=== PATIENT | female | born 1930 | race Caucasian/White ===

== ENCOUNTER 2018-04-30 10:29 | Inpatient (IN) | payer MEDICAID ==
[~2018-04-30] VITALS: Ht 162.6 cm; Wt 65.3 kg
[~2018-04-30 10:29] MED LIST: ASPI-1159 MT; ATOR10TA69 MT; BENA20TA10 PO; DILT240C3 PO; ESOM20VI PO; FAMO40TA7 MT; FLUO-123 MT; GABA-529 MT; HYDR-4134 PO; METF-415 PO; OMEP40CA34 MT; ROSU10TA25 PO; SIME80TA14 PO; TOPXL5 PO; WARF3TAB58 PO
[2018-04-30] MEDS ORDERED: ONDANSETRON HCL 4MG/2ML INJ IV STA (10:59)
[2018-04-30] MEDS ORDERED: SODIUM CHLORIDE 0.9% 1,000 ML IV ONE (10:59)
[2018-04-30] MEDS ORDERED: MORPHINE SULFATE 4 MG/ML CPJ (NOT FOR IM USE) IV STA (10:59)
[2018-04-30 12:48] LABS: BASOPHILS % 0.6 % (0.0-2.0); EOSINOPHILS % 1.2 % (0.0-5.0); HEMATOCRIT. 29.6 % (36.0-48.0); HEMOGLOBIN. 9.2 g/dL (12.0-16.0); MEAN CORPUSCULAR HEMOGLOBIN 23.5 pg (28.0-32.0); MEAN CORPUSCULAR VOLUME 75.8 fL (81.0-99.0); MEAN PLATELET VOLUME 7.7 fl (7.4-10.4); MONOCYTES % 5.8 % (2.0-8.0); NEUTROPHILS % 76.4 % (40.0-76.0); PLATELET 236 x1000/uL (130-400); RED BLOOD CELL COUNT 3.91 mill/uL (4.2-5.4); RED CELL DISTRIBUTION WIDTH 17.3 % (11.6-14.6)
[2018-04-30] MEDS ORDERED: MORPHINE SULFATE 10 MG/ML CPJ IV NR (12:52)
[2018-04-30 12:58] LABS: CHLORIDE 105 mEq/L (98-107)
[2018-04-30 13:09] LABS: INR > 10.0; PROTHROMBIN TIME 128.1 sec (9.1-11.1)
[2018-04-30 13:16] LABS: PARTIAL THROMBOPLASTIN TIME 82.2 sec (23.4-31.0)
[2018-04-30] MEDS ORDERED: PHYTONADIONE 10 MG/10 ML ORALSYR PO ONE (13:30)
[2018-04-30 14:37] LABS: CLARITY URINE CLEAR (CLEAR); COLOR URINE YELLOW (YELLOW); KETONES URINE NEGATIVE (NEGATIVE); LEUKOCYTE ESTERASE URINE 2+ (NEGATIVE); NITRITE URINE NEGATIVE (NEGATIVE); OCCULT BLOOD URINE TRACE (NEGATIVE); PROTEIN URINE NEGATIVE (NEGATIVE); SPECIFIC GRAVITY URINE 1.013 (1.005-1.030)
[2018-04-30] MEDS ORDERED: CEFTRIAXONE 1 G PREMIX 50 ML IV ONE (15:30)
[2018-04-30 17:30] VITALS: BP 128/49
[2018-04-30 17:42] VITALS: BP 128/49
[2018-04-30] MEDS ORDERED: DEXTROSE 50% WATER 50ML SYRINGE IV PRN (19:15)
[2018-04-30 20:00] VITALS: BP 151/55
[2018-04-30] MEDS: BLOOD SUGAR DIAGNOSTIC STRIP TEST SCH (21:59)
[2018-04-30] MEDS: INSULIN LISPRO 100 UNITS/ML SUBCUT SCH (21:59)
[2018-05-01] VITALS: BP 170/62
[2018-05-01 04:00] VITALS: BP 118/58
[2018-05-01] MEDS: METFORMIN HCL 850MG TABLET PO SCH ×2 (06:51→17:07)
[2018-05-01] MEDS: BLOOD SUGAR DIAGNOSTIC STRIP TEST SCH ×4 (06:52→21:38)
[2018-05-01] MEDS: INSULIN LISPRO 100 UNITS/ML SUBCUT SCH ×4 (06:55→21:57)
[2018-05-01 07:21] LABS: CHLORIDE 105 mEq/L (98-107)
[2018-05-01 08:00] VITALS: BP 137/48
[2018-05-01] MEDS: FLUOXETINE HCL 10 MG CAPSULE PO SCH (09:00)
[2018-05-01] MEDS: BENAZEPRIL 5MG TABLET PO SCH (09:01)
[2018-05-01] MEDS: SIMETHICONE 80MG TABLET CHEW PO SCH (09:01)
[2018-05-01] MEDS: FAMOTIDINE 20MG TABLET PO SCH (09:01)
[2018-05-01] MEDS: GABAPENTIN 100MG CAPSULE PO SCH (09:01)
[2018-05-01] MEDS: METOPROLOL TARTRATE 25MG TABLET PO SCH ×2 (09:02→21:38)
[2018-05-01 12:00] VITALS: BP 132/54
[2018-05-01] MEDS ORDERED: KETOROLAC 15MG/ML VIAL IV PRN (14:30)
[2018-05-01 16:00] VITALS: BP 145/63
[2018-05-01] MEDS ORDERED: PHYTONADIONE 10MG/ML AMP SUBCUT NR (16:00)
[2018-05-01 20:00] VITALS: BP 140/60
[2018-05-01 20:26] LABS: INR 2.5; PROTHROMBIN TIME 24.9 sec (9.1-11.1)
[2018-05-01] MEDS: ATORVASTATIN CALCIUM 10MG TABLET PO SCH (21:38)
[2018-05-02] VITALS (8 sets, daily range): BP systolic 116–176; BP diastolic 44–79
[2018-05-02] MEDS: METFORMIN HCL 850MG TABLET PO SCH ×2 (06:49→16:59)
[2018-05-02] MEDS: INSULIN LISPRO 100 UNITS/ML SUBCUT SCH ×4 (06:49→22:02)
[2018-05-02] MEDS: BLOOD SUGAR DIAGNOSTIC STRIP TEST SCH ×4 (06:49→21:55)
[2018-05-02 07:09] LABS: INR 1.6; PROTHROMBIN TIME 15.7 sec (9.1-11.1)
[2018-05-02] MEDS: METOPROLOL TARTRATE 25MG TABLET PO SCH (08:23)
[2018-05-02] MEDS: FLUOXETINE HCL 10 MG CAPSULE PO SCH (08:23)
[2018-05-02] MEDS: BENAZEPRIL 5MG TABLET PO SCH (08:23)
[2018-05-02] MEDS: GABAPENTIN 100MG CAPSULE PO SCH (08:23)
[2018-05-02] MEDS: SIMETHICONE 80MG TABLET CHEW PO SCH (08:23)
[2018-05-02] MEDS: FAMOTIDINE 20MG TABLET PO SCH (08:23)
[2018-05-02] MEDS ORDERED: CLONIDINE 0.1MG TABLET PO PRN (12:00)
[2018-05-02] MEDS: ATORVASTATIN CALCIUM 10MG TABLET PO SCH (22:07)
[2018-05-02] MEDS: METOPROLOL TARTRATE 50MG TABLET PO SCH (22:07)
[2018-05-03] VITALS: BP 140/46
[2018-05-03 04:00] VITALS: BP 141/48
[2018-05-03] MEDS: BLOOD SUGAR DIAGNOSTIC STRIP TEST SCH ×3 (06:29→17:12)
[2018-05-03] MEDS: INSULIN LISPRO 100 UNITS/ML SUBCUT SCH ×3 (06:29→17:25)
[2018-05-03] MEDS: METFORMIN HCL 850MG TABLET PO SCH ×2 (06:29→17:18)
[2018-05-03 07:48] LABS: BASOPHILS % 0.9 % (0.0-2.0); EOSINOPHILS % 2.8 % (0.0-5.0); HEMATOCRIT. 30.7 % (36.0-48.0); HEMOGLOBIN. 9.3 g/dL (12.0-16.0); LYMPHOCYTES % 23.1 % (20.0-50.0); MEAN CORPUSCULAR HEMOGLOBIN 23.4 pg (28.0-32.0); MEAN CORPUSCULAR VOLUME 77.1 fL (81.0-99.0); MEAN PLATELET VOLUME 8.2 fl (7.4-10.4); MONOCYTES % 4.7 % (2.0-8.0); NEUTROPHILS % 68.5 % (40.0-76.0); PLATELET 236 x1000/uL (130-400); RED BLOOD CELL COUNT 3.98 mill/uL (4.2-5.4); RED CELL DISTRIBUTION WIDTH 17.3 % (11.6-14.6)
[2018-05-03 08:00] VITALS: BP 159/66
[2018-05-03 08:17] LABS: CHLORIDE 103 mEq/L (98-107)
[2018-05-03] MEDS: GABAPENTIN 100MG CAPSULE PO SCH (09:00)
[2018-05-03] MEDS ORDERED: ASPIRIN 81MG TABLET PO SCH (09:00)
[2018-05-03] MEDS: FAMOTIDINE 20MG TABLET PO SCH (09:01)
[2018-05-03] MEDS: METOPROLOL TARTRATE 50MG TABLET PO SCH (09:01)
[2018-05-03] MEDS: BENAZEPRIL 5MG TABLET PO SCH (09:01)
[2018-05-03] MEDS: FLUOXETINE HCL 10 MG CAPSULE PO SCH (09:01)
[2018-05-03] MEDS: SIMETHICONE 80MG TABLET CHEW PO SCH (09:02)
[2018-05-03] MEDS: DOCUSATE SODIUM 250MG CAPSULE PO SCH ×2 (11:45→16:24)
[2018-05-03 12:00] VITALS: BP 127/54
[2018-05-03] MEDS ORDERED: IPRATROPIUM/ALBUTEROL 0.5-3(2.5)MG/3ML NEB HHN PRN (13:00)
[2018-05-03 16:00] VITALS: BP 130/49
[2018-05-03 18:01] VITALS: BP 130/49
[2018-05-03] MEDS ORDERED: LACTULOSE 20G/30ML UDC PO PRN (21:00)
== END 2018-05-03 19:05 | disposition home or self-care (01) | DRG 194 ==
LOC: ER 10:48 → 5WST 13:44 → ENRESERV 14:59 → CANRESERV 14:59 → ENRESERV 15:37
PROVIDERS: ADMIT Internal Medicine; ATTEND Internal Medicine
DX: I13.0 Hypertensive heart and chronic kidney disease with heart failure and stage 1 through stage 4 chronic kidney disease, or unspecified chronic kidney disease (principal); D68.9 Coagulation defect, unspecified; E11.22 Type 2 diabetes mellitus with diabetic chronic kidney disease; I27.20 Pulmonary hypertension, unspecified; J44.9 Chronic obstructive pulmonary disease, unspecified; M94.0 Chondrocostal junction syndrome [Tietze]; I50.43 Acute on chronic combined systolic (congestive) and diastolic (congestive) heart failure; F03.90 Unspecified dementia, unspecified severity, without behavioral disturbance, psychotic disturbance, mood disturbance, and anxiety; E03.9 Hypothyroidism, unspecified; N39.0 Urinary tract infection, site not specified; N18.9 Chronic kidney disease, unspecified; K74.60 Unspecified cirrhosis of liver; K76.0 Fatty (change of) liver, not elsewhere classified; D64.9 Anemia, unspecified; I48.0 Paroxysmal atrial fibrillation; K21.9 Gastro-esophageal reflux disease without esophagitis; E78.00 Pure hypercholesterolemia, unspecified; E78.5 Hyperlipidemia, unspecified; G89.29 Other chronic pain; I25.10 Atherosclerotic heart disease of native coronary artery without angina pectoris; I25.2 Old myocardial infarction; Z79.01 Long term (current) use of anticoagulants; Z79.84 Long term (current) use of oral hypoglycemic drugs; Z86.73 Personal history of transient ischemic attack (TIA), and cerebral infarction without residual deficits; Z95.0 Presence of cardiac pacemaker
CPT/HCPCS: 36415; 71045; 80048; 82962; 83036; 83880; 84484; 86850; 86900; 93005; 93306; 96361; 96374; 96375; 99285; J0696; J1815; J1885; J2270; J2405; J3430; J7030

== ENCOUNTER 2018-07-16 15:01 | Inpatient (IN) | payer MEDICAID ==
[~2018-07-16] VITALS: Ht 162.6 cm; Wt 57.6 kg
[~2018-07-16 15:01] MED LIST changes: -ESOM20VI PO; -FAMO40TA7 MT; -METF-415 PO; -ROSU10TA25 PO; -WARF3TAB58 PO
[2018-07-16] MEDS ORDERED: ASPIRIN 81MG TABLET PO ONE (16:30)
[2018-07-16 17:14] LABS: BASOPHILS % 0.7 % (0.0-2.0); EOSINOPHILS % 0.7 % (0.0-5.0); HEMATOCRIT. 36.2 % (36.0-48.0); HEMOGLOBIN. 11.2 g/dL (12.0-16.0); LYMPHOCYTES % 10.8 % (20.0-50.0); MEAN CORPUSCULAR HEMOGLOBIN 26.2 pg (28.0-32.0); MEAN CORPUSCULAR VOLUME 84.9 fL (81.0-99.0); MEAN PLATELET VOLUME 7.9 fl (7.4-10.4); MONOCYTES % 5.6 % (2.0-8.0); NEUTROPHILS % 82.2 % (40.0-76.0); PLATELET 232 x1000/uL (130-400); RED BLOOD CELL COUNT 4.26 mill/uL (4.2-5.4); RED CELL DISTRIBUTION WIDTH 20.7 % (11.6-14.6)
[2018-07-16 17:18] LABS: CHLORIDE 98 mEq/L (98-107)
[2018-07-16] MEDS ORDERED: FUROSEMIDE 20MG/2ML VIAL IVP SCH (22:00)
[2018-07-17] VITALS (7 sets, daily range): BP systolic 111–199; BP diastolic 48–82
[2018-07-17] MEDS: IPRATROPIUM/ALBUTEROL 0.5-3(2.5)MG/3ML NEB HHN SCH ×6 (01:25→21:14)
[2018-07-17] MEDS ORDERED: BENAZEPRIL 10MG TABLET PO SCH (02:00)
[2018-07-17] MEDS: METOPROLOL TARTRATE 25MG TABLET PO SCH ×2 (02:03→23:19)
[2018-07-17] MEDS: OMEPRAZOLE 20MG CAPSULE EXTENDED RELEASE PO SCH (02:03)
[2018-07-17] MEDS: HYDRALAZINE HCL 25MG TABLET PO SCH ×2 (02:04→21:00)
[2018-07-17] MEDS ORDERED: METOPROLOL TARTRATE 25MG TABLET PO SCH (09:00)
[2018-07-17] MEDS: FUROSEMIDE 40MG/4ML VIAL IVP SCH (09:15)
[2018-07-17] MEDS: ATORVASTATIN CALCIUM 10MG TABLET PO SCH (09:15)
[2018-07-17] MEDS: FLUOXETINE HCL 10 MG CAPSULE PO SCH (09:16)
[2018-07-17] MEDS: GABAPENTIN 100MG CAPSULE PO SCH (09:16)
[2018-07-17] MEDS: SIMETHICONE 80MG TABLET CHEW PO SCH (09:16)
[2018-07-17] MEDS: CARVEDILOL 3.125 MG TABLET PO SCH ×2 (09:16→21:18)
[2018-07-17] MEDS: DILTIAZEM HCL 120MG CAPSULE CD 24HR PO SCH (09:16)
[2018-07-17] MEDS: ASPIRIN 81MG TABLET PO SCH (09:16)
[2018-07-17] MEDS: ENOXAPARIN 40MG/0.4ML SYR SUBCUT SCH (09:17)
[2018-07-17] MEDS: GUAIFENESIN 600MG ER TABLET PO SCH ×2 (14:40→23:10)
[2018-07-17] MEDS: ACETAMINOPHEN 325MG TABLET PO PRN (14:40)
[2018-07-17] MEDS: BENAZEPRIL 10MG TABLET PO SCH (17:14)
[2018-07-18] VITALS (7 sets, daily range): BP systolic 107–164; BP diastolic 50–62
[2018-07-18] MEDS: IPRATROPIUM/ALBUTEROL 0.5-3(2.5)MG/3ML NEB HHN SCH ×7 (01:32→21:00)
[2018-07-18] MEDS: OMEPRAZOLE 20MG CAPSULE EXTENDED RELEASE PO SCH (06:23)
[2018-07-18] MEDS: SIMETHICONE 80MG TABLET CHEW PO SCH (09:51)
[2018-07-18] MEDS: FUROSEMIDE 40MG/4ML VIAL IVP SCH (09:51)
[2018-07-18] MEDS: HYDRALAZINE HCL 25MG TABLET PO SCH ×2 (09:52→21:06)
[2018-07-18] MEDS: ASPIRIN 81MG TABLET PO SCH (09:52)
[2018-07-18] MEDS: DILTIAZEM HCL 120MG CAPSULE CD 24HR PO SCH (09:52)
[2018-07-18] MEDS: GABAPENTIN 100MG CAPSULE PO SCH (09:53)
[2018-07-18] MEDS: ATORVASTATIN CALCIUM 10MG TABLET PO SCH (09:53)
[2018-07-18] MEDS: CARVEDILOL 3.125 MG TABLET PO SCH ×2 (09:53→21:07)
[2018-07-18] MEDS: METOPROLOL TARTRATE 25MG TABLET PO SCH ×2 (09:53→21:06)
[2018-07-18] MEDS: FLUOXETINE HCL 10 MG CAPSULE PO SCH (09:53)
[2018-07-18] MEDS: BENAZEPRIL 10MG TABLET PO SCH ×2 (09:54→21:06)
[2018-07-18] MEDS: ENOXAPARIN 40MG/0.4ML SYR SUBCUT SCH (09:55)
[2018-07-18] MEDS: GUAIFENESIN 600MG ER TABLET PO SCH ×2 (10:07→21:06)
[2018-07-18] MEDS: AZITHROMYCIN 500 MG in DEXT 5% WATER 250 ML IV SCH (13:44)
[2018-07-18] MEDS ORDERED: DEXTROSE 50% WATER 50ML SYRINGE IV PRN (15:00)
[2018-07-18] MEDS: BLOOD SUGAR DIAGNOSTIC STRIP TEST SCH ×2 (17:20→21:06)
[2018-07-18] MEDS: ACETAMINOPHEN 325MG TABLET PO PRN (17:36)
[2018-07-18] MEDS: METFORMIN HCL 500MG TABLET PO SCH (18:36)
[2018-07-18] MEDS: INSULIN LISPRO 100 UNITS/ML SUBCUT SCH ×2 (18:39→21:06)
[2018-07-18] MEDS: FLUTICASONE PROPIONATE 50MCG/SPRAY BOTTLE BOTHNSTRLS SCH (21:07)
[2018-07-19] VITALS: BP 129/60
[2018-07-19] MEDS: IPRATROPIUM/ALBUTEROL 0.5-3(2.5)MG/3ML NEB HHN SCH ×6 (01:06→20:28)
[2018-07-19 04:00] VITALS: BP 137/55
[2018-07-19 07:07] LABS: BASOPHILS % 0.5 % (0.0-2.0); EOSINOPHILS % 0.6 % (0.0-5.0); HEMATOCRIT. 29.8 % (36.0-48.0); HEMOGLOBIN. 9.3 g/dL (12.0-16.0); LYMPHOCYTES % 13.6 % (20.0-50.0); MEAN PLATELET VOLUME 7.8 fl (7.4-10.4); MONOCYTES % 5.5 % (2.0-8.0); NEUTROPHILS % 79.8 % (40.0-76.0); PLATELET 231 x1000/uL (130-400); RED BLOOD CELL COUNT 3.59 mill/uL (4.2-5.4); RED CELL DISTRIBUTION WIDTH 19.6 % (11.6-14.6)
[2018-07-19] MEDS: BLOOD SUGAR DIAGNOSTIC STRIP TEST SCH ×4 (07:25→20:30)
[2018-07-19] MEDS: OMEPRAZOLE 20MG CAPSULE EXTENDED RELEASE PO SCH (07:27)
[2018-07-19] MEDS ORDERED: HYDROCODONE/ACETAMINOPHEN 5/325MG TABLET PO PRN (07:45)
[2018-07-19] MEDS: INSULIN LISPRO 100 UNITS/ML SUBCUT SCH ×4 (07:50→20:29)
[2018-07-19 08:00] VITALS: BP 158/66
[2018-07-19] MEDS ORDERED: PREDNISONE 20MG TABLET PO SCH (09:00)
[2018-07-19] MEDS: GABAPENTIN 100MG CAPSULE PO SCH (09:37)
[2018-07-19] MEDS: SIMETHICONE 80MG TABLET CHEW PO SCH (09:37)
[2018-07-19] MEDS: FUROSEMIDE 40MG/4ML VIAL IVP SCH (09:37)
[2018-07-19] MEDS: HYDRALAZINE HCL 25MG TABLET PO SCH ×2 (09:38→21:21)
[2018-07-19] MEDS: FLUOXETINE HCL 10 MG CAPSULE PO SCH (09:39)
[2018-07-19] MEDS: BENAZEPRIL 10MG TABLET PO SCH ×2 (09:40→21:21)
[2018-07-19] MEDS: ATORVASTATIN CALCIUM 10MG TABLET PO SCH (09:40)
[2018-07-19] MEDS: CARVEDILOL 3.125 MG TABLET PO SCH (09:40)
[2018-07-19] MEDS: METOPROLOL TARTRATE 25MG TABLET PO SCH ×2 (09:40→21:21)
[2018-07-19] MEDS: ENOXAPARIN 40MG/0.4ML SYR SUBCUT SCH (09:41)
[2018-07-19] MEDS: DILTIAZEM HCL 120MG CAPSULE CD 24HR PO SCH (09:41)
[2018-07-19] MEDS: GUAIFENESIN 600MG ER TABLET PO SCH ×2 (09:41→21:21)
[2018-07-19] MEDS: ASPIRIN 81MG TABLET PO SCH (09:41)
[2018-07-19] MEDS ORDERED: INSULIN LISPRO 100 UNITS/ML SUBCUT ONE (13:00)
[2018-07-19] MEDS: AZITHROMYCIN 500 MG in DEXT 5% WATER 250 ML IV SCH (13:14)
[2018-07-19] MEDS: METFORMIN HCL 500MG TABLET PO SCH (18:01)
[2018-07-19 18:27] LABS: CLARITY URINE CLEAR (CLEAR); COLOR URINE YELLOW (YELLOW); KETONES URINE NEGATIVE (NEGATIVE); LEUKOCYTE ESTERASE URINE TRACE (NEGATIVE); NITRITE URINE NEGATIVE (NEGATIVE); OCCULT BLOOD URINE NEGATIVE (NEGATIVE); PH URINE 5.5 (4.5-8.0); PROTEIN URINE NEGATIVE (NEGATIVE); SPECIFIC GRAVITY URINE 1.008 (1.005-1.030); UROBILINOGEN URINE 0.2 E.U./dL (0.2-1.0)
[2018-07-19 20:00] VITALS: BP 124/59
[2018-07-19] MEDS: CARVEDILOL 12.5MG TABLET PO SCH (21:21)
[2018-07-19] MEDS: FLUTICASONE PROPIONATE 50MCG/SPRAY BOTTLE BOTHNSTRLS SCH (21:22)
[2018-07-19 23:49] VITALS: BP 119/72
[2018-07-20] MEDS: IPRATROPIUM/ALBUTEROL 0.5-3(2.5)MG/3ML NEB HHN SCH ×6 (00:52→21:45)
[2018-07-20 04:05] VITALS: BP 115/48
[2018-07-20] MEDS: OMEPRAZOLE 20MG CAPSULE EXTENDED RELEASE PO SCH (06:28)
[2018-07-20] MEDS: BLOOD SUGAR DIAGNOSTIC STRIP TEST SCH ×4 (06:29→20:29)
[2018-07-20 07:38] LABS: BASOPHILS % 0.5 % (0.0-2.0); HEMATOCRIT. 30.7 % (36.0-48.0); HEMOGLOBIN. 9.5 g/dL (12.0-16.0); LYMPHOCYTES % 7.7 % (20.0-50.0); MEAN CORPUSCULAR HEMOGLOBIN 25.6 pg (28.0-32.0); MEAN PLATELET VOLUME 8.2 fl (7.4-10.4); MONOCYTES % 3.2 % (2.0-8.0); NEUTROPHILS % 88.6 % (40.0-76.0); PLATELET 258 x1000/uL (130-400); RED BLOOD CELL COUNT 3.69 mill/uL (4.2-5.4); RED CELL DISTRIBUTION WIDTH 19.3 % (11.6-14.6)
[2018-07-20 08:00] VITALS: BP 124/55
[2018-07-20] MEDS: BENAZEPRIL 10MG TABLET PO SCH ×2 (09:00→20:01)
[2018-07-20] MEDS: DILTIAZEM HCL 120MG CAPSULE CD 24HR PO SCH (09:00)
[2018-07-20] MEDS: GUAIFENESIN 600MG ER TABLET PO SCH ×2 (09:56→20:58)
[2018-07-20] MEDS: METFORMIN HCL 500MG TABLET PO SCH ×2 (09:56→18:05)
[2018-07-20] MEDS: CARVEDILOL 12.5MG TABLET PO SCH ×2 (09:57→20:00)
[2018-07-20] MEDS: ASPIRIN 81MG TABLET PO SCH (09:57)
[2018-07-20] MEDS: METOPROLOL TARTRATE 25MG TABLET PO SCH (09:57)
[2018-07-20] MEDS: ENOXAPARIN 40MG/0.4ML SYR SUBCUT SCH (09:59)
[2018-07-20] MEDS: INSULIN LISPRO 100 UNITS/ML SUBCUT SCH ×4 (10:01→20:46)
[2018-07-20] MEDS: FLUTICASONE PROPIONATE 50MCG/SPRAY BOTTLE BOTHNSTRLS SCH ×2 (10:02→20:44)
[2018-07-20 12:00] VITALS: BP 101/47
[2018-07-20] MEDS: SIMETHICONE 80MG TABLET CHEW PO SCH (13:00)
[2018-07-20] MEDS: GABAPENTIN 100MG CAPSULE PO SCH (13:00)
[2018-07-20] MEDS: AZITHROMYCIN 500 MG in DEXT 5% WATER 250 ML IV SCH (13:13)
[2018-07-20] MEDS: FUROSEMIDE 40MG/4ML VIAL IVP SCH (13:13)
[2018-07-20] MEDS ORDERED: ACETYLCYSTEINE 100MG/ML 10% VIAL 4ML INH SCH (14:00)
[2018-07-20] MEDS: FLUOXETINE HCL 10 MG CAPSULE PO SCH (15:05)
[2018-07-20 15:51] VITALS: BP 93/43
[2018-07-20] MEDS: GUAIFENESIN-DM 200MG-20MG/10ML UDC PO PRN (18:05)
[2018-07-20] MEDS: COLCHICINE 0.6MG TABLET PO SCH (18:06)
[2018-07-20 20:00] VITALS: BP 105/47
[2018-07-20] MEDS: ATORVASTATIN CALCIUM 10MG TABLET PO SCH (20:44)
[2018-07-20] MEDS: INSULIN GLARGINE UD 100 UNITS/ML SYR SUBCUT SCH (21:12)
[2018-07-21 00:05] VITALS: BP 144/59
[2018-07-21] MEDS: IPRATROPIUM/ALBUTEROL 0.5-3(2.5)MG/3ML NEB HHN SCH ×6 (01:00→21:09)
[2018-07-21 04:00] VITALS: BP 142/61
[2018-07-21] MEDS: GUAIFENESIN-DM 200MG-20MG/10ML UDC PO PRN (05:26)
[2018-07-21 06:19] LABS: BASOPHILS % 0.7 % (0.0-2.0); EOSINOPHILS % 0.4 % (0.0-5.0); HEMOGLOBIN. 10.6 g/dL (12.0-16.0); LYMPHOCYTES % 13.3 % (20.0-50.0); MEAN CORPUSCULAR HEMOGLOBIN 25.8 pg (28.0-32.0); MEAN CORPUSCULAR VOLUME 82.9 fL (81.0-99.0); MEAN PLATELET VOLUME 8.1 fl (7.4-10.4); MONOCYTES % 4.9 % (2.0-8.0); NEUTROPHILS % 80.7 % (40.0-76.0); PLATELET 302 x1000/uL (130-400); RED CELL DISTRIBUTION WIDTH 19.3 % (11.6-14.6)
[2018-07-21] MEDS: BLOOD SUGAR DIAGNOSTIC STRIP TEST SCH ×4 (06:22→21:28)
[2018-07-21 08:00] VITALS: BP 164/67
[2018-07-21] MEDS: FUROSEMIDE 40MG/4ML VIAL IVP SCH (08:56)
[2018-07-21] MEDS: SIMETHICONE 80MG TABLET CHEW PO SCH (08:59)
[2018-07-21] MEDS: ENOXAPARIN 40MG/0.4ML SYR SUBCUT SCH (08:59)
[2018-07-21] MEDS: COLCHICINE 0.6MG TABLET PO SCH (08:59)
[2018-07-21] MEDS: FLUOXETINE HCL 10 MG CAPSULE PO SCH (09:00)
[2018-07-21] MEDS: DILTIAZEM HCL 120MG CAPSULE CD 24HR PO SCH (09:00)
[2018-07-21] MEDS: FAMOTIDINE 20MG TABLET PO SCH (09:00)
[2018-07-21] MEDS: ALLOPURINOL 100 MG TABLET PO SCH (09:01)
[2018-07-21] MEDS: GABAPENTIN 100MG CAPSULE PO SCH (09:01)
[2018-07-21] MEDS: ASPIRIN 81MG TABLET PO SCH (09:01)
[2018-07-21] MEDS: CARVEDILOL 12.5MG TABLET PO SCH ×2 (09:01→22:23)
[2018-07-21] MEDS: BENAZEPRIL 10MG TABLET PO SCH (09:01)
[2018-07-21] MEDS: FLUTICASONE PROPIONATE 50MCG/SPRAY BOTTLE BOTHNSTRLS SCH ×2 (09:03→21:00)
[2018-07-21] MEDS: INSULIN LISPRO 100 UNITS/ML SUBCUT SCH ×4 (09:12→22:23)
[2018-07-21 12:00] VITALS: BP 110/52
[2018-07-21] MEDS: GUAIFENESIN 600MG ER TABLET PO SCH ×2 (12:50→22:24)
[2018-07-21] MEDS ORDERED: CEFTRIAXONE 1 G PREMIX 50 ML IV SCH (14:30)
[2018-07-21] MEDS: AZITHROMYCIN 500 MG in DEXT 5% WATER 250 ML IV SCH (15:54)
[2018-07-21 16:00] VITALS: BP 103/52
[2018-07-21] MEDS ORDERED: CEFTRIAXONE 1,000 MG in DEXTROSE 5% WATER 50 ML IV SCH (16:00)
[2018-07-21 20:00] VITALS: BP 128/60
[2018-07-21] MEDS: CEFTRIAXONE 1,000 MG in DEXTROSE 5% WATER 50 ML IV SCH ×2 (21:28→22:15)
[2018-07-21] MEDS: INSULIN GLARGINE UD 100 UNITS/ML SYR SUBCUT SCH (22:23)
[2018-07-21] MEDS: ATORVASTATIN CALCIUM 10MG TABLET PO SCH (22:24)
[2018-07-22] VITALS: BP 108/49
[2018-07-22] MEDS: IPRATROPIUM/ALBUTEROL 0.5-3(2.5)MG/3ML NEB HHN SCH ×6 (00:47→21:31)
[2018-07-22] MEDS: BLOOD SUGAR DIAGNOSTIC STRIP TEST SCH ×4 (06:20→20:46)
[2018-07-22 08:00] VITALS: BP 139/59
[2018-07-22 08:08] LABS: EOSINOPHILS % 1.7 % (0.0-5.0); HEMATOCRIT. 33.4 % (36.0-48.0); HEMOGLOBIN. 10.5 g/dL (12.0-16.0); LYMPHOCYTES % 28.4 % (20.0-50.0); MEAN CORPUSCULAR HEMOGLOBIN 26.1 pg (28.0-32.0); MEAN CORPUSCULAR VOLUME 82.7 fL (81.0-99.0); MEAN PLATELET VOLUME 7.5 fl (7.4-10.4); MONOCYTES % 7.1 % (2.0-8.0); NEUTROPHILS % 61.8 % (40.0-76.0); PLATELET 300 x1000/uL (130-400); RED BLOOD CELL COUNT 4.03 mill/uL (4.2-5.4); RED CELL DISTRIBUTION WIDTH 19.3 % (11.6-14.6)
[2018-07-22 08:19] LABS: CHLORIDE 101 mEq/L (98-107)
[2018-07-22] MEDS: DILTIAZEM HCL 120MG CAPSULE CD 24HR PO SCH (08:45)
[2018-07-22] MEDS: ALLOPURINOL 100 MG TABLET PO SCH (08:45)
[2018-07-22] MEDS: GUAIFENESIN 600MG ER TABLET PO SCH ×2 (08:45→20:45)
[2018-07-22] MEDS: COLCHICINE 0.6MG TABLET PO SCH (08:45)
[2018-07-22] MEDS: BENAZEPRIL 10MG TABLET PO SCH (08:45)
[2018-07-22] MEDS: FAMOTIDINE 20MG TABLET PO SCH (08:45)
[2018-07-22] MEDS: CARVEDILOL 12.5MG TABLET PO SCH ×2 (08:46→20:45)
[2018-07-22] MEDS: GABAPENTIN 100MG CAPSULE PO SCH (08:46)
[2018-07-22] MEDS: SIMETHICONE 80MG TABLET CHEW PO SCH (08:46)
[2018-07-22] MEDS: ASPIRIN 81MG TABLET PO SCH (08:46)
[2018-07-22] MEDS: FLUOXETINE HCL 10 MG CAPSULE PO SCH (08:46)
[2018-07-22] MEDS: FUROSEMIDE 20MG TABLET PO SCH (08:46)
[2018-07-22] MEDS: ENOXAPARIN 40MG/0.4ML SYR SUBCUT SCH (08:54)
[2018-07-22] MEDS: INSULIN LISPRO 100 UNITS/ML SUBCUT SCH ×4 (08:57→20:46)
[2018-07-22 12:30] VITALS: BP 139/59
[2018-07-22] MEDS: AZITHROMYCIN 500 MG in DEXT 5% WATER 250 ML IV SCH (14:39)
[2018-07-22 16:38] VITALS: BP 109/49
[2018-07-22] MEDS: METFORMIN HCL 500MG TABLET PO SCH (18:11)
[2018-07-22 20:37] VITALS: BP 122/59
[2018-07-22] MEDS: ATORVASTATIN CALCIUM 10MG TABLET PO SCH (20:45)
[2018-07-22] MEDS: FLUTICASONE PROPIONATE 50MCG/SPRAY BOTTLE BOTHNSTRLS SCH (20:46)
[2018-07-22] MEDS: INSULIN GLARGINE UD 100 UNITS/ML SYR SUBCUT SCH (22:29)
[2018-07-23 00:32] VITALS: BP 117/62
[2018-07-23] MEDS: IPRATROPIUM/ALBUTEROL 0.5-3(2.5)MG/3ML NEB HHN SCH ×6 (01:02→20:34)
[2018-07-23 04:00] VITALS: BP 141/63
[2018-07-23] MEDS: BLOOD SUGAR DIAGNOSTIC STRIP TEST SCH ×4 (07:42→21:05)
[2018-07-23] MEDS: INSULIN LISPRO 100 UNITS/ML SUBCUT SCH ×4 (07:50→21:00)
[2018-07-23 08:00] VITALS: BP 124/99
[2018-07-23] MEDS: COLCHICINE 0.6MG TABLET PO SCH (09:01)
[2018-07-23] MEDS: ALLOPURINOL 100 MG TABLET PO SCH (09:01)
[2018-07-23] MEDS: FAMOTIDINE 20MG TABLET PO SCH (09:01)
[2018-07-23] MEDS: GABAPENTIN 100MG CAPSULE PO SCH (09:01)
[2018-07-23] MEDS: FLUOXETINE HCL 10 MG CAPSULE PO SCH (09:01)
[2018-07-23] MEDS: ASPIRIN 81MG TABLET PO SCH (09:01)
[2018-07-23] MEDS: SIMETHICONE 80MG TABLET CHEW PO SCH (09:01)
[2018-07-23] MEDS: CARVEDILOL 12.5MG TABLET PO SCH ×2 (09:02→21:05)
[2018-07-23] MEDS: BENAZEPRIL 10MG TABLET PO SCH (09:02)
[2018-07-23] MEDS: FUROSEMIDE 20MG TABLET PO SCH (09:02)
[2018-07-23] MEDS: GUAIFENESIN 600MG ER TABLET PO SCH ×2 (09:03→21:04)
[2018-07-23] MEDS: DILTIAZEM HCL 120MG CAPSULE CD 24HR PO SCH (09:03)
[2018-07-23] MEDS: ENOXAPARIN 40MG/0.4ML SYR SUBCUT SCH (09:04)
[2018-07-23 12:33] VITALS: BP 117/60
[2018-07-23] MEDS: FLUTICASONE PROPIONATE 50MCG/SPRAY BOTTLE BOTHNSTRLS SCH ×2 (12:46→21:04)
[2018-07-23] MEDS: AZITHROMYCIN 500 MG in DEXT 5% WATER 250 ML IV SCH (16:27)
[2018-07-23 16:28] VITALS: BP 113/59
[2018-07-23] MEDS: METFORMIN HCL 500MG TABLET PO SCH (17:49)
[2018-07-23 20:00] VITALS: BP 115/61
[2018-07-23] MEDS: CEFTRIAXONE 1,000 MG in DEXTROSE 5% WATER 50 ML IV SCH (21:04)
[2018-07-23] MEDS: ATORVASTATIN CALCIUM 10MG TABLET PO SCH (21:04)
[2018-07-23] MEDS: INSULIN GLARGINE UD 100 UNITS/ML SYR SUBCUT SCH (21:27)
[2018-07-24] VITALS (7 sets, daily range): BP systolic 98–144; BP diastolic 55–64
[2018-07-24] MEDS: IPRATROPIUM/ALBUTEROL 0.5-3(2.5)MG/3ML NEB HHN SCH ×5 (03:10→21:28)
[2018-07-24] MEDS: BLOOD SUGAR DIAGNOSTIC STRIP TEST SCH ×4 (06:32→21:07)
[2018-07-24] MEDS: INSULIN LISPRO 100 UNITS/ML SUBCUT SCH ×4 (07:46→21:15)
[2018-07-24] MEDS: DILTIAZEM HCL 120MG CAPSULE CD 24HR PO SCH (08:54)
[2018-07-24] MEDS: FLUTICASONE PROPIONATE 50MCG/SPRAY BOTTLE BOTHNSTRLS SCH ×2 (08:54→20:39)
[2018-07-24] MEDS: COLCHICINE 0.6MG TABLET PO SCH (08:54)
[2018-07-24] MEDS: ASPIRIN 81MG TABLET PO SCH (08:55)
[2018-07-24] MEDS: GABAPENTIN 100MG CAPSULE PO SCH (08:55)
[2018-07-24] MEDS: CARVEDILOL 12.5MG TABLET PO SCH ×2 (08:55→20:39)
[2018-07-24] MEDS: BENAZEPRIL 10MG TABLET PO SCH (08:56)
[2018-07-24] MEDS: GUAIFENESIN 600MG ER TABLET PO SCH ×2 (08:56→20:39)
[2018-07-24] MEDS: FUROSEMIDE 20MG TABLET PO SCH (08:56)
[2018-07-24] MEDS: ENOXAPARIN 40MG/0.4ML SYR SUBCUT SCH (08:57)
[2018-07-24] MEDS: ALLOPURINOL 100 MG TABLET PO SCH (08:57)
[2018-07-24] MEDS: FAMOTIDINE 20MG TABLET PO SCH (09:02)
[2018-07-24] MEDS: SIMETHICONE 80MG TABLET CHEW PO SCH (09:06)
[2018-07-24] MEDS: FLUOXETINE HCL 10 MG CAPSULE PO SCH (09:06)
[2018-07-24] MEDS: AZITHROMYCIN 500 MG in DEXT 5% WATER 250 ML IV SCH (12:53)
[2018-07-24] MEDS: METFORMIN HCL 500MG TABLET PO SCH (17:42)
[2018-07-24] MEDS: CEFTRIAXONE 1,000 MG in DEXTROSE 5% WATER 50 ML IV SCH (20:39)
[2018-07-24] MEDS: ATORVASTATIN CALCIUM 10MG TABLET PO SCH (20:39)
[2018-07-24] MEDS: INSULIN GLARGINE UD 100 UNITS/ML SYR SUBCUT SCH (21:16)
[2018-07-25] MEDS: IPRATROPIUM/ALBUTEROL 0.5-3(2.5)MG/3ML NEB HHN SCH ×6 (00:53→21:00)
[2018-07-25 04:00] VITALS: BP 107/50
[2018-07-25] MEDS: BLOOD SUGAR DIAGNOSTIC STRIP TEST SCH ×4 (06:38→21:05)
[2018-07-25] MEDS: INSULIN LISPRO 100 UNITS/ML SUBCUT SCH ×4 (07:13→21:00)
[2018-07-25 08:05] VITALS: BP 123/63
[2018-07-25] MEDS: FLUTICASONE PROPIONATE 50MCG/SPRAY BOTTLE BOTHNSTRLS SCH (08:38)
[2018-07-25] MEDS: FAMOTIDINE 20MG TABLET PO SCH (08:40)
[2018-07-25] MEDS: ASPIRIN 81MG TABLET PO SCH (08:40)
[2018-07-25] MEDS: DILTIAZEM HCL 120MG CAPSULE CD 24HR PO SCH (08:40)
[2018-07-25] MEDS: COLCHICINE 0.6MG TABLET PO SCH (08:40)
[2018-07-25] MEDS: GABAPENTIN 100MG CAPSULE PO SCH (08:40)
[2018-07-25] MEDS: FUROSEMIDE 20MG TABLET PO SCH (08:40)
[2018-07-25] MEDS: SIMETHICONE 80MG TABLET CHEW PO SCH (08:41)
[2018-07-25] MEDS: CARVEDILOL 12.5MG TABLET PO SCH ×2 (08:41→21:04)
[2018-07-25] MEDS: BENAZEPRIL 10MG TABLET PO SCH (08:41)
[2018-07-25] MEDS: ALLOPURINOL 100 MG TABLET PO SCH (08:41)
[2018-07-25] MEDS: GUAIFENESIN 600MG ER TABLET PO SCH ×2 (08:41→21:04)
[2018-07-25] MEDS: FLUOXETINE HCL 10 MG CAPSULE PO SCH (08:45)
[2018-07-25] MEDS: GUAIFENESIN-DM 200MG-20MG/10ML UDC PO PRN (08:49)
[2018-07-25] MEDS: ENOXAPARIN 40MG/0.4ML SYR SUBCUT SCH (08:49)
[2018-07-25 12:12] VITALS: BP 115/41
[2018-07-25] MEDS ORDERED: AZITHROMYCIN 500 MG TABLET PO SCH (14:00)
[2018-07-25 15:49] VITALS: BP 91/58
[2018-07-25] MEDS: METFORMIN HCL 500MG TABLET PO SCH (17:28)
[2018-07-25 19:54] VITALS: BP 116/53
[2018-07-25] MEDS: CEFTRIAXONE 1,000 MG in DEXTROSE 5% WATER 50 ML IV SCH (21:03)
[2018-07-25] MEDS: ATORVASTATIN CALCIUM 10MG TABLET PO SCH (21:04)
[2018-07-25] MEDS: INSULIN GLARGINE UD 100 UNITS/ML SYR SUBCUT SCH (21:05)
[2018-07-25 23:44] VITALS: BP 90/47
[2018-07-26] MEDS: IPRATROPIUM/ALBUTEROL 0.5-3(2.5)MG/3ML NEB HHN SCH ×4 (01:01→15:04)
[2018-07-26 04:05] VITALS: BP 117/58
[2018-07-26] MEDS: BLOOD SUGAR DIAGNOSTIC STRIP TEST SCH ×2 (07:20→12:20)
[2018-07-26] MEDS: INSULIN LISPRO 100 UNITS/ML SUBCUT SCH ×2 (07:50→12:50)
[2018-07-26] MEDS: ACETAMINOPHEN 325MG TABLET PO PRN (07:51)
[2018-07-26 08:19] VITALS: BP 136/66
[2018-07-26] MEDS ORDERED: AZITHROMYCIN 500 MG TABLET PO SCH (09:00)
[2018-07-26] MEDS: ALLOPURINOL 100 MG TABLET PO SCH (09:22)
[2018-07-26] MEDS: FLUOXETINE HCL 10 MG CAPSULE PO SCH (09:22)
[2018-07-26] MEDS: SIMETHICONE 80MG TABLET CHEW PO SCH (09:22)
[2018-07-26] MEDS: COLCHICINE 0.6MG TABLET PO SCH (09:23)
[2018-07-26] MEDS: CARVEDILOL 12.5MG TABLET PO SCH (09:23)
[2018-07-26] MEDS: BENAZEPRIL 10MG TABLET PO SCH (09:24)
[2018-07-26] MEDS: ASPIRIN 81MG TABLET PO SCH (09:24)
[2018-07-26] MEDS: DILTIAZEM HCL 120MG CAPSULE CD 24HR PO SCH (09:24)
[2018-07-26] MEDS: GABAPENTIN 100MG CAPSULE PO SCH (09:24)
[2018-07-26] MEDS: FUROSEMIDE 20MG TABLET PO SCH (09:24)
[2018-07-26] MEDS: ENOXAPARIN 40MG/0.4ML SYR SUBCUT SCH (09:24)
[2018-07-26] MEDS: GUAIFENESIN 600MG ER TABLET PO SCH (09:24)
[2018-07-26] MEDS: FAMOTIDINE 20MG TABLET PO SCH (09:24)
[2018-07-26 12:19] VITALS: BP 137/68
[2018-07-26 14:59] VITALS: BP 137/68
[2018-07-26 16:32] VITALS: BP 102/54
== END 2018-07-26 18:17 | disposition home health service (06) | DRG 194 ==
LOC: ER 15:47 → EDBEDREQTM 21:45 → EDBEDREQ 21:45 → 6WST 21:49 → ENRESERV 22:37
PROVIDERS: ADMIT Internal Medicine; ATTEND Internal Medicine
DX: I13.0 Hypertensive heart and chronic kidney disease with heart failure and stage 1 through stage 4 chronic kidney disease, or unspecified chronic kidney disease (principal); J96.00 Acute respiratory failure, unspecified whether with hypoxia or hypercapnia; J18.9 Pneumonia, unspecified organism; E44.0 Moderate protein-calorie malnutrition; E11.22 Type 2 diabetes mellitus with diabetic chronic kidney disease; I27.20 Pulmonary hypertension, unspecified; I07.1 Rheumatic tricuspid insufficiency; I49.5 Sick sinus syndrome; I42.9 Cardiomyopathy, unspecified; I50.33 Acute on chronic diastolic (congestive) heart failure; I48.0 Paroxysmal atrial fibrillation; M94.0 Chondrocostal junction syndrome [Tietze]; D63.1 Anemia in chronic kidney disease; F03.90 Unspecified dementia, unspecified severity, without behavioral disturbance, psychotic disturbance, mood disturbance, and anxiety; N18.9 Chronic kidney disease, unspecified; F32.9 Major depressive disorder, single episode, unspecified; J06.9 Acute upper respiratory infection, unspecified; M79.2 Neuralgia and neuritis, unspecified; I25.10 Atherosclerotic heart disease of native coronary artery without angina pectoris; M25.569 Pain in unspecified knee; I34.0 Nonrheumatic mitral (valve) insufficiency; J31.0 Chronic rhinitis; E78.5 Hyperlipidemia, unspecified; K21.9 Gastro-esophageal reflux disease without esophagitis; H91.90 Unspecified hearing loss, unspecified ear; K76.0 Fatty (change of) liver, not elsewhere classified; M10.9 Gout, unspecified; W07.XXXA Fall from chair, initial encounter; I35.1 Nonrheumatic aortic (valve) insufficiency; I25.2 Old myocardial infarction; Z86.73 Personal history of transient ischemic attack (TIA), and cerebral infarction without residual deficits; Z95.810 Presence of automatic (implantable) cardiac defibrillator; Z68.21 Body mass index [BMI] 21.0-21.9, adult; Y93.89 Activity, other specified; Y92.89 Other specified places as the place of occurrence of the external cause; Y99.8 Other external cause status; Z79.82 Long term (current) use of aspirin; Z79.899 Other long term (current) drug therapy
CPT/HCPCS: 36415; 71045; 73560; 73630; 80048; 82962; 83036; 83880; 84484; 84550; 93005; 93306; 94640; 96374; 97116; 97162; 97166; 97530; 97535; 99285; C1893; J0456; J0696; J1650; J1815; J1940; J7040; J7050; J7060; J7512; J7608; J7620